=== PATIENT | female | born 2000 | race Caucasian/White ===

== ENCOUNTER 2021-02-19 15:02 | Emergency (ER) | payer OTHER, SELFPAY ==
--- NOTE | ~2021-02-19 | XR_ITS ---
EXAMINATION: XR ankle RT min 3V EXAM DATE: 02/19/2021 15:29 INDICATION: FALL down stairs this P.M.; lat Rt ankle pain. TECHNIQUE: Right ankle frontal, lateral and oblique projections obtained and reviewed. There is no p rior study for comparison. FINDINGS: The right ankle mortise appears intact. There are no acute fractures or dislocations iden tified. There is no subcutaneous gas. There is soft tissue swelling over the ankle anteriorly. The re are no radiopaque foreign bodies. IMPRESSION: No acute osseous findings. Reviewed, dictated and finalized at location A. STICS PROGRAM MANAGER IMPRESSION: No acute osseous findings.
--- NOTE | 2021-02-19 15:12 | ED.LOWEXIN ---
HPI - Extremity Injury (Lower) General Chief Complaint: Extremity Injury, Lower Stated Complaint: rt ankle injury Time Seen by Provider: 02/19/21 15:15 Source: patient and RN notes reviewed Mode of arrival: ambulatory Limitations: no limitations History of Present Illness HPI Narrative: Joyce is a 20-year-old female patient who ambulated into the [facility] accompanied by a friend. Patient still states she fell downstairs earlier today. She is complaining of right lateral ankle pain rates a 7 out of 10. There is a small area of ecchymosis and swelling on the right lateral ankle. Patient states she had a previous injury to years ago to the same ankle and had a torn tendon. MD complaint: ankle injury Related Data Home Medications Medication Instructions Recorded Confirmed cimetidine 02/19/21 esomeprazole magnesium [Nexium] mg 02/19/21 norgestimate-ethinyl estradiol 1 tablet PO DAILY 02/19/21 02/19/21 [[id number]] Allergies Allergy/AdvReac Type Severity Reaction Status Date / Time No Known Allergies Allergy Verified 02/19/21 15:13 Review of Systems Review of Systems: CONSTITUTIONAL: Denies body aches, fever, chills, or sweats. EYES: Denies visual changes, redness, or discharge. ENT: Denies rhinorrhea, congestion, sore throat, or otalgia. CARDIOVASCULAR: Denies chest pain, palpitations, or edema. RESPIRATORY: Denies cough or dyspnea. GASTROINTESTINAL: Denies abdominal pain, nausea, vomiting, or diarrhea. GENITOURINARY: Denies dysuria or hematuria. SKIN: Denies rash, itching, or wounds. MUSCULOSKELETAL: Denies back pain, joint pain, or myalgia. + right anklepain NEUROLOGIC: Denies headache, numbness, tingling, or weakness. PSYCH: Denies depression or anxiety. All systems reviewed & are unremarkable except as noted in HPI and below PMFSH Comments At time of signature, I have reviewed and agree with nursing past medical, surgical, social and family history unless otherwise noted. Please see nursing chart for further information. There is no relevant family history pertinent to the presenting complaint Exam Narrative: GENERAL: Well-appearing, well-nourished, and in no acute distress. HEAD: Normocephalic, atraumatic. EYES: EOMI. No redness or drainage. Conjunctivae normal. ENT: Mucous membranes pink and moist. Nares clear. No rhinorrhea. TMs normal bilaterally. Throat normal. Uvula midline. NECK: Normal AROM. Supple. No lymphadenopathy. CHEST: No respiratory distress. HEART: . Normal peripheral pulses. MUSCULOSKELETAL: tenderness right lateral malleolus EXTREMITIES: Normal range of motion. right lateral ankle edema with minimal ecchymosis, SKIN: Warm, dry, no rash. Capillary refill normal. Normal skin turgor. NEURO: No focal deficits. Alert and oriented x3. Gait steady. PSYCH: Normal affect. No signs of depression or anxiety. Course Vital Signs Vital signs: Vital Signs Temperature 36.6 C 02/19/21 15:15 Pulse Rate 112 H 02/19/21 15:15 Respiratory Rate 20 02/19/21 15:15 Blood Pressure 134/73 02/19/21 15:15 Pulse Oximetry 99 02/19/21 15:15 Temperature 36.6 C 02/19/21 15:15 Pulse Rate 112 H 02/19/21 15:15 Respiratory Rate 20 02/19/21 15:15 Blood Pressure 134/73 02/19/21 15:15 Pulse Oximetry 99 02/19/21 15:15 Reviewed. Pt has been instructed to follow up with her PCP regarding her elevated blood pressure today. MDM - Extremity Injury (Lower) Differential Diagnosis Differential diagnosis: Likely ankle sprain and strain, fracture of toe and ankle fracture Medical Records Attestation: I reviewed the patient's medical records. Critical Care Time Critical Care Time Critical Care Time: No Discharge Plan Discharge Clinical Impression: Ankle sprain and strain Patient Disposition: Home, Self-Care Condition: Stable Instructions: Antibiotic Form, Ankle Sprain (ED), Crutch Instructions (ED) Additional Instructions: Your blood pressure wa
[2021-02-19 15:15] VITALS: BP 134/73; PULSE 112; RESP 20; TEMP 36.6; O2SAT 99
== END 2021-02-19 16:04 | disposition home or self-care (01) ==
PROVIDERS: Emergency Provider Nurse Practitioner Family
DX: S93.401A Sprain of unspecified ligament of right ankle, initial encounter (principal); S96.911A Strain of unspecified muscle and tendon at ankle and foot level, right foot, initial encounter; W10.9XXA Fall (on) (from) unspecified stairs and steps, initial encounter; K21.9 Gastro-esophageal reflux disease without esophagitis
CPT/HCPCS: 73610; 99213; G0463

== ENCOUNTER 2021-11-10 07:00 | Emergency (ER) | payer OTHER, SELFPAY ==
--- NOTE | ~2021-11-10 | CT_ITS ---
EXAMINATION: CT abdomen pelvis w con DATE: 11/10/2021 08:27 INDICATION: Lower abdominal pain TECHNIQUE: Computed tomography (CT) of the abdomen and pelvis was performed with 100 mL Omnipaque-350 intravenous contrast. Automated exposure control and iterative reconstruction technique were employe d. The dose-length product was 437.98 mGy-cm. COMPARISON: None FINDINGS: Lung bases are clear. Heart size is normal. No pericardial or pleural effusion. Liver, gallbladder, s pleen, pancreas, bilateral adrenal glands and kidneys are normal. Bladder, anteverted uterus and bila teral adnexa are unremarkable. Bowels including the appendix are normal. Trace amount of likely physi ologic free fluid in the pelvis. No abscess or free intraperitoneal gas. No pathologically enlarged a bdominal or pelvic lymphadenopathy. Mild thoracolumbar dextrocurvature. IMPRESSION: 1. No acute intra-abdominal/pelvic process. Reviewed, dictated and finalized at location A.
[2021-11-10 07:22] VITALS: BP 132/68; PULSE 91; RESP 20; TEMP 36.2; O2SAT 98
--- NOTE | 2021-11-10 07:35 | ED.ABDPAIN ---
HPI - Abdominal Pain General Chief Complaint: Abdominal Pain Stated Complaint: abd pain/ back pain/ vomiting Time Seen by Provider: 11/10/21 07:33 Source: patient and RN notes reviewed Mode of arrival: ambulatory Limitations: no limitations History of Present Illness HPI narrative: 21 years old white female presents with lower abdominal pain radiating to lower back in the last few days. Patient went to [facility] on 4 days ago, patient reported that she got discharged without a specific diagnosis. Patient reported intermittent nausea and vomiting. History of twice daily. Patient works in assisting living. Patient been taking Tylenol and ibuprofen intermittently without significant improvement. Patient denies aggravating or relieving factors. She denies any vaginal bleeding or discharge. Related Data Home Medications Medication Instructions Recorded Confirmed esomeprazole magnesium 20 mg 20 mg PO DAILY 02/19/21 08/05/21 capsule,delayed release (Nexium) norgestimate 0.18 mg/0.215 mg/0.25 1 tablet PO DAILY 02/19/21 08/05/21 mg-ethinyl estradiol 25 mcg tablet (Zsb-Ju-Tlnmxe) famotidine 20 mg tablet 20 mg PO DAILY 07/08/21 08/05/21 loratadine 10 mg tablet (Claritin) 10 mg PO DAILY 08/05/21 08/05/21 Allergies Allergy/AdvReac Type Severity Reaction Status Date / Time No Known Allergies Allergy Verified 11/10/21 07:43 Review of Systems Review of Systems: All systems reviewed & are unremarkable except as noted in HPI and below PMFSH Past Medical History Medical History Allergies Anxiety Collar bone fracture Fractured skull GERD (gastroesophageal reflux disease) Surgical History Surgical History H/O eye surgery H/O hernia repair Family History Family History Grandparent Carcinoma of colon Breast cancer Diabetes mellitus Hypertension Cerebrovascular accident Mother Depression Father Depression Social History Social History Smoking status: Never smoker Tobacco type: e-cigarettes/vaping Alcohol intake: current Substance use: never Exam Narrative: General appearance: Well-developed, well-nourished Skin: Normal color Head: Normocephalic, nontraumatic Eyes: Clear conjunctiva ENT: Oropharynx normal, ears normal, nose normal Neck: Supple, nontender Chest and respiratory: Airway patent, no respiratory distress, no accessory muscle use Heart: Regular rate/rhythm Abdomen: Diffuse abdominal tenderness, positive guarding, no rebound, quiet bowel sounds Vascular: Normal peripheral pulses, normal capillary refill. Musculoskeletal: Normal range of motion, nontender back Neurologic: Alert and oriented ?3, SPECIAL EVENT ASSISTANT is normal as tested, no gross motor deficit : External Female Exam: normal external appearance Speculum Exam - Vagina: normal appearance of the vagina Speculum Exam - Cervix: Cervical os closed (Erythematous, surrounded by thick yellow discharge, motion tenderness) Bimanual exam- vagina & uterus: cervical motion tenderness Bimanual Exam- Adnexa, other: no masses and tender bilaterally Course Course Emergency Course: Work-up today did not show any significant finding to explain patient condition. Pelvic exam showed erythematous cervix, diffuse tenderness with motion, surrounded by thick yellowish discharge consistent with PID. Patient received ceftriaxone have gram IM prior to discharge with a prescription of doxycycline and Flagyl twice daily for the next 2 weeks. Vital Signs Vital s
[2021-11-10 07:45] LABS: Basophils Absolute Auto 0.1 K/mm3 (0.0-0.1); Basophils Percent Auto 0.9 % (0.2-1.2); Eosinophils Absolute Auto 0.2 K/mm3 (0-0.3); Eosinophils Percent Auto 2.2 % (0-4.4); Hematocrit 38.1 % (37.0-47.0); Hemoglobin 11.8 g/dL (12.0-15.0); Immature Granulocyte Absolute 0.01 K/mm3 (0.00-0.031); Immature Granulocyte Percent A 0.1 % (0-0.5); Lymphocytes Percent Auto 24.9 % (18.3-44.2); Mean Corpuscular Hemoglobin 25.3 pg (26-34); Mean Corpuscular Volume 81.8 fl (80-100); Mean Platelet Volume 9.2 fl (7.4-10.4); Monocytes Absolute Auto 0.5 K/mm3 (0.1-0.6); Monocytes Percent Auto 6.9 % (2.6-8.5); Neutrophils Absolute Auto 4.4 K/mm3 (1.3-6.7); Platelet Count Result 386 k/mm3 (150-375); Red Blood Count 4.66 M/mm3 (4.2-5.4); Red Cell Distribution Width 17.3 % (11.5-14.5); White Blood Count 6.8 K/mm3 (4.5-10.0)
[2021-11-10] MEDS: HYDROmorphone HCL INJ (*CRX) 1 MG/ML SYR 0.5 MG IV PUSH (07:48)
[2021-11-10] MEDS: SODIUM CHLORIDE 0.9% IV 1,000 ML 999 ML IV CONT (07:49)
[2021-11-10 07:51] LABS: Appearance Urine Cloudy (Clear); Bilirubin Urine Negative (Negative); Blood Urine Negative (Negative); Color Urine Yellow (Yellow); Glucose Urine UA Negative (Negative); Ketones Urine Negative (Negative); Leukocyte Esterase Ur Negative LEU/UL (Negative); Nitrate Urine Negative (Negative); Protein Urine Negative (Negative); Urobilinogen Urine 0.2 mg/dL (<2.0); pH Urine 8.5 (5.0-9.0)
[2021-11-10 07:59] LABS: Add Urine Microscopic? YES; Amorphous Sediment Urine Few; Bacteria Urine Trace /hpf; Mucus Urine Rare /lpf; Squamous Epithelial Cell Urine Rare /hpf (Few); WBC Urine 0-3 /hpf
[2021-11-10 08:00] LABS: Alanine Aminotransferase 20 U/L (6-35); Albumin Level 4.3 g/dL (3.5-5.1); Alkaline Phosphatase 101 U/L (38-126); Anion Gap 10 mmol/L (8-16); Aspartate Amino Transferase 28 U/L (14-36); Bilirubin,Total 0.2 mg/dL (0.2-1.3); Blood Urea Nitrogen 12 mg/dL (7-17); Calcium 9.2 mg/dL (8.4-10.2); Carbon Dioxide 27 mmol/L (22-30); Chloride 102 mmol/L (98-107); Estimated CRCL calculation 104 ml/min; Estimated Glomerular Filt Rate > 60; Glucose 103 mg/dL (65-110); Lipase 66 U/L (23-300); Sodium 139 mmol/L (137-145)
[2021-11-10 11:00] VITALS: BP 123/74; PULSE 80; O2SAT 100
[2021-11-10] MEDS: LIDOCAINE HCL 1% LOCAL INJ 20 ML VIAL (11:19)
[2021-11-10] MEDS: cefTRIAXone 1 GM VIAL 0.5 GM IM (11:20)
[2021-11-10 11:30] VITALS: BP 122/75; PULSE 84; RESP 16; O2SAT 99
== END 2021-11-10 11:30 | disposition home or self-care (01) ==
PROVIDERS: Emergency Provider Emergency Medicine; PCP Internal Medicine
DX: N73.9 Female pelvic inflammatory disease, unspecified (principal); F41.9 Anxiety disorder, unspecified; K21.9 Gastro-esophageal reflux disease without esophagitis; Z11.3 Encounter for screening for infections with a predominantly sexual mode of transmission
CPT/HCPCS: 36415; 74177; 80053; 81001; 81025; 83690; 85025; 87070; 87491; 87591; 87808; 96361; 96372; 96374; 99284; J0696; J1170; J7030; Q9967

== ENCOUNTER 2022-12-30 11:52 | Emergency (ER) | payer OTHER, SELFPAY ==
[2022-12-30] VITALS (10 sets, daily range): BP systolic 102–126; BP diastolic 53–86; PULSE 74–88; RESP 14–18; TEMP 36.6–36.7; O2SAT 96–100
--- NOTE | ~2022-12-30 | CT_ITS ---
EXAMINATION: CT abdomen pelvis w con DATE: 12/30/2022 16:02 INDICATION: Diffuse lower abdominal pain. Nausea, vomiting, diarrhea TECHNIQUE: Computed tomography (CT) of the abdomen and pelvis was performed with 100 CC Omnipaque 350 intravenous contrast. Automated exposure control and iterative reconstruction technique were employe d. Exam dose: 722.39 mGy-cm total exam DLP. COMPARISON: 11/10/2021 CT abdomen pelvis FINDINGS: Mild bilateral lower lobe dependent atelectasis. Normal heart size. No pericardial or pleur al effusion. Small sliding hiatal hernia. The liver, spleen, pancreas, gallbladder, bile ducts and pancreatic duct are unremarkable. Normal morphology of the adrenal glands. No renal mass lesion or urinary tract calculus or hydroureteronephrosis. The urinary bladder, uterus and adnexal areas are unremarkable. Small amount of free fluid in the posterior cul-de-sac, which may be physiologic. Normal caliber of the abdominal aorta. No intraperitoneal or retroperitoneal or pelvic mass lesion or adenopathy or ascites is detected. Normal appendix. No bowel obstruction, bowel wall thickening, pneumatosis or intraperitoneal free air . Included skeletal structures are unremarkable. IMPRESSION: Small sliding hiatal hernia Reviewed, dictated and finalized at Location A. Reviewed, dictated and finalized at location L. IMPRESSION: Small sliding hiatal hernia
[2022-12-30 12:45] LABS: Basophils Percent Auto 0.4 % (0.2-1.2); Eosinophils Absolute Auto 0.1 K/mm3 (0-0.3); Eosinophils Percent Auto 0.6 % (0-4.4); Hematocrit 39.2 % (37.0-47.0); Hemoglobin 12.8 g/dL (12.0-15.0); Immature Granulocyte Absolute 0.03 K/mm3 (0.00-0.031); Immature Granulocyte Percent A 0.3 % (0-0.5); Lymphocytes Absolute Auto 1.92 K/mm3 (0.9-3.2); Lymphocytes Percent Auto 21.2 % (18.3-44.2); Mean Corpuscular HGB Conc 32.7 g/dl (32-36); Mean Corpuscular Hemoglobin 28.7 pg (26-34); Mean Corpuscular Volume 87.9 fl (80-100); Mean Platelet Volume 9.4 fl (7.4-10.4); Monocytes Absolute Auto 0.4 K/mm3 (0.1-0.6); Monocytes Percent Auto 4.7 % (2.6-8.5); Neutrophils Absolute Auto 6.6 K/mm3 (1.3-6.7); Neutrophils Percent Auto 72.8 % (45.5-73.1); Platelet Count Result 336 k/mm3 (150-375); Red Blood Count 4.46 M/mm3 (4.2-5.4); Red Cell Distribution Width 14.1 % (11.5-14.5); White Blood Count 9.1 K/mm3 (4.5-10.0)
[2022-12-30 12:46] LABS: Appearance Urine Turbid (Clear); Bacteria Urine Rare /hpf; Bilirubin Urine Negative (Negative); Blood Urine Negative (Negative); Color Urine Yellow (Yellow); Glucose Urine UA Negative (Negative); Ketones Urine Negative (Negative); Leukocyte Esterase Ur Negative LEU/UL (Negative); Nitrate Urine Negative (Negative); Non Pathogenic Casts 0-2; Protein Urine Negative (Negative); RBC Urine 0-2 /hpf (0-2); Specific Grav Ur 1.017 (1.001-1.035); Squamous Epithelial Cell Urine None seen /hpf (Few); Urobilinogen Urine 0.2 mg/dL (<2.0); WBC Urine 0-5 /hpf
[2022-12-30 12:50] LABS: Add Urine Microscopic? YES
[2022-12-30 12:55] LABS: Alanine Aminotransferase 23 U/L (6-35); Albumin Level 4.5 g/dL (3.5-5.1); Alkaline Phosphatase 69 U/L (38-126); Anion Gap 5 mmol/L (8-16); Aspartate Amino Transferase 25 U/L (14-36); Bilirubin,Total 0.4 mg/dL (0.2-1.3); Blood Urea Nitrogen 13 mg/dL (7-17); Calcium 9.1 mg/dL (8.4-10.2); Carbon Dioxide 26 mmol/L (22-30); Chloride 104 mmol/L (98-107); Estimated CRCL calculation 124 ml/min; Estimated Glomerular Filt Rate > 60; Glucose 87 mg/dL (65-110); Lipase 39 U/L (23-300); Potassium 3.6 mmol/L (3.4-5.0); Sodium 135 mmol/L (137-145)
[2022-12-30] MEDS: SODIUM CHLORIDE 0.9% IV 1,000 ML 999 ML IV CONT ×2 (15:49→17:07)
[2022-12-30] MEDS: ONDANSETRON INJ 4 MG/2 ML VIAL IV PUSH ×2 (15:51→17:07)
[2022-12-30] MEDS: MORPHINE SULFATE (*CRX) 4 MG/ML INJ IV PUSH (15:51)
--- NOTE | 2022-12-30 16:19 | ED.NAVMDI ---
HPI - Nausea/Vomiting/Diarrhea General Chief complaint: Nausea/Vomiting/Diarrhea Stated complaint: N/V, blood in stool Time Seen by Provider: 12/30/22 15:15 Source: patient Mode of arrival: ambulatory Limitations: no limitations History of Present Illness HPI Narrative: Patient is a 22-year-old female who presents to the ED with report of nausea and vomiting. Patient reports she developed nausea and vomiting on Tuesday. She states she is currently in the process of having her Zoloft switched to Fluvoxamine. She started the fluvoxamine on . She thought the vomiting may be related to this. She does also report some diarrhea and states she noticed some bright red bleeding with wiping a few days ago after having several BMs. Denies significant pain with BM. She does report lower abdominal pain today and persistent vomiting, which prompted her presentation. Denies any fevers, dysuria, hematuria, cough or cold symptoms. Related Data Home Medications Medication Instructions Recorded Confirmed loratadine 10 mg tablet (Claritin) 10 mg PO DAILY 08/05/21 12/09/22 buspirone 10 mg tablet 10 mg PO BID 12/09/22 12/09/22 quetiapine 25 mg tablet 25 mg PO QHS 12/09/22 12/09/22 risperidone 2 mg tablet (Risperdal) 2 mg PO DAILY 12/09/22 12/09/22 sertraline 100 mg tablet 200 mg PO DAILY 12/09/22 12/09/22 Allergies Allergy/AdvReac Type Severity Reaction Status Date / Time No Known Allergies Allergy Verified 12/30/22 14:59 Review of Systems Review of Systems: CONSTITUTIONAL: Denies fever, chills, or sweats. CARDIOVASCULAR: Denies chest pain. RESPIRATORY: Denies dyspnea. GASTROINTESTINAL: See HPI. GENITOURINARY: Denies dysuria or hematuria. SKIN: Denies rash or itching. MUSCULOSKELETAL: Denies back pain, joint pain, or myalgia. All systems reviewed & are unremarkable except as noted in HPI and below PMFSH Past Medical History Medical History Allergies Anxiety Collar bone fracture Fractured skull GERD (gastroesophageal reflux disease) Schizophrenic disorder Schizo effective disorder Surgical History Surgical History H/O eye surgery H/O hernia repair Family History Family History Grandparent Carcinoma of colon Breast cancer Diabetes mellitus Hypertension Cerebrovascular accident Mother Depression Father Depression Social History Social History Smoking status: Never smoker Tobacco type: e-cigarettes/vaping Alcohol intake: current Substance use: never Lack of Transportation: No Lack of Food: Sometimes True Current Housing: I Have Housing Concerned About Future Housing: No Difficulty Paying Gas/Electric Bills: No Difficulty Paying for Meds: No Currently Unemployed: No Education: High School Diploma/GED Difficulty w/ Childcare or Family Care: No Exam Narrative: GENERAL: Somewhat flushed appearing, obese with BMI 32.5, non-toxic, in no acute distress. HEAD: Normocephalic, atraumatic. NECK: Supple. No adenopathy, no masses. RESPIRATORY: Airway patent, respirations nonlabored. Clear to auscultation bilaterally, no rales, rhonchi, wheezing. CARDIOVASCULAR: Regular rate and rhythm without murmurs, rubs, or gallops. Radial pulses 2+ and equal bilaterally. ABDOMINAL: Soft, mild tenderness throughout bilateral lower quadrants, nondistended, no hepatosplenomegaly. Normoactive BS. MUSCULOSKELETAL: Moves all extremities. Strength/ROM intact without gross deformities. SKIN: Warm, dry, normal color. No rashes. NEURO: A&O X3. Speech clear. Cranial nerves II-XII grossly intact. Steady gait. No ataxic movements. PSYCHIATRIC: Appropriate mood and affect. Normal interaction. Course Vital Signs Vital signs: Vital Signs Temperature 97.8
[2022-12-30] MEDS: DICYCLOMINE HCL 10 MG CAPSULE 20 MG PO (16:29)
[2022-12-30] MEDS: PANTOPRAZOLE SODIUM IV 40 MG VIAL IV PUSH (17:07)
[2022-12-30] MEDS: METOCLOPRAMIDE HCL INJ 10 MG/2 ML VIAL IV PUSH (17:50)
== END 2022-12-30 19:23 | disposition home or self-care (01) ==
PROVIDERS: Emergency Medicine; Emergency Provider Physician Assistant; PCP Internal Medicine
DX: R11.2 Nausea with vomiting, unspecified (principal); K44.9 Diaphragmatic hernia without obstruction or gangrene; K21.9 Gastro-esophageal reflux disease without esophagitis; F41.9 Anxiety disorder, unspecified; F25.9 Schizoaffective disorder, unspecified; F17.290 Nicotine dependence, other tobacco product, uncomplicated
CPT/HCPCS: 36415; 74177; 80053; 81001; 81025; 83690; 85025; 96361; 96374; 96375; 96376; 99284; A9270; C9113; J2270; J2405; J2765; J7030; Q9967

== ENCOUNTER 2023-02-22 07:45 | Outpatient (CLI) | payer OTHER, SELFPAY ==
--- NOTE | ~2023-02-22 | NM_ITS ---
. EXAM: NM gastric emptying study DATE: 02/22/2023 12:29 INDICATION: Nausea and vomiting, unspecified. TECHNIQUE: A gastric emptying study was performed using the methodology of Rahat COTA, et al. J Nucl Med 2007; 48:568-572. The patient was given a meal consisting of 2 scrambled eggs labeled with 1 mCi Tc-99m sulfur colloid, 2 slices of toast, two packages of jam, and approximately 120 mL of water. Si multaneous anterior and posterior 1-min images of the abdomen were obtained with the patient supine a t multiple time points over a total period of 4 hours. The geometric mean of anterior and posterior v iews was determined, and the percentage retention was calculated for each time point. COMPARISON: CT abdomen and pelvis 12/30/2022 FINDINGS: Gastric retention of the radiotracer-labeled meal was 74%, 55%, and 26% at the 1-hour, 2-h our, and 4-hour time points, respectively. With this technique, apparent rapid gastric emptying is griffith ggested by <30% gastric retention at 1 hour. Delayed gastric emptying is defined by gastric retention of >90% at 1 hour, >60% retention at 2 hours, or >10% retention at 4 hours. IMPRESSION: 1. Delayed gastric emptying. Reviewed, dictated and finalized at location A. E LEADER
== END 2023-02-22 07:46 | disposition home or self-care (01) ==
PROVIDERS: PCP Internal Medicine; Visit Provider Nurse Practitioner
DX: K30 Functional dyspepsia (principal); R11.2 Nausea with vomiting, unspecified
CPT/HCPCS: 78264; A9541

== ENCOUNTER 2023-06-10 14:24 | Outpatient (CLI) | payer OTHER, SELFPAY ==
--- NOTE | 2023-06-14 15:56 | WPDHOLTEREM ---
Holter/Event Monitor Holter/Event Monitor Date of procedure: 06/10/23 Holter/Event Procedure: 48 Hr Holter Monitor Indications: Tachycardia Conclusion: 1. 48 hour holter monitor on 06/10/23. 2. Underlying rhythm is sinus rhythm. HR range 50-156 bpm; average HR 89 bpm. HR at 156 bpm was at 09:58. 3. There are 7 premature supraventricular complexes and 2 supraventricular couplets. No supraventricular tachycardia. 4. There are 5 premature ventricular complexes. No ventricular tachycardia. 5. No sinoatrial or atrioventricular blocks. No significant pauses greater than 2 seconds. 6. No symptoms available for correlation.
== END 2023-06-10 14:25 | disposition home or self-care (01) ==
LOC: ANHCARD 14:25
PROVIDERS: PCP Internal Medicine; Visit Provider Nurse Practitioner
DX: R00.0 Tachycardia, unspecified (principal)
CPT/HCPCS: 93225; 93226